=== PATIENT | female | born 1935 | race Hispanic/Latino ===

== ENCOUNTER 2019-10-01 13:44 | Emergency (ER) | payer OTHER ==
[~2019-10-01 13:44] MED LIST: ASPI-555 PO; ATOR40TA69 PO; BUSP10TA3 PO; ESCI5TAB10 PO; HYDR12.54 PO; ISOS60TA4 PO; MEMA21CA PO; NITR0.4T SL
[2019-10-01 14:47] LABS: BASOPHILS % (AUTO) 1.1 % (0.0-5.0); EOSINOPHILS % (AUTO) 5.8 % (0.0-8.0); HEMATOCRIT 39.3 % (36-48); LYMPHOCYTES % (AUTO) 24.8 % (21.0-51.0); MEAN CORPUSCULAR HEMOGLOBIN 29.4 pg (27.0-33.0); MEAN CORPUSCULAR HGB CONC 33.8 g/dL (32.0-36.0); MEAN CORPUSCULAR VOLUME 86.9 fL (79-99); NEUTROPHILS % (AUTO) 54.8 % (40.0-77.0); PLATELET COUNT (AUTO) 300 K/uL (130-400); RED BLOOD CELL COUNT(AUTO) 4.52 MIL/uL (4.00-5.50); WHITE BLOOD COUNT (AUTO) 6.4 K/uL (4.8-10.8)
[2019-10-01 14:57] LABS: INR 1.06 (0.85-1.15); PARTIAL THROMBOPLASTIN TIME 21.9 SEC (26.3-35.5); PROTHROMBIN TIME 11.4 SEC (9.6-11.6)
[2019-10-01 15:16] LABS: CARBON DIOXIDE 26 mmol/L (21-32); CHLORIDE 102 mmol/L (101-111); CREATININE 0.8 mg/dL (0.5-1.5); GLOMERULAR FILTR. RATE CALC 73 mL/min (>60); GLUCOSE,RANDOM 97 mg/dL (70-105); POTASSIUM 3.7 mmol/L (3.5-5.1); SODIUM SERUM 138 mmol/L (136-145); UREA NITROGEN, BLOOD 10 mg/dL (7-18)
[2019-10-01 15:19] LABS: ALANINE AMINOTRANSFERASE 23 U/L (12-78); ALBUMIN 3.2 g/dL (3.5-5.0); ASPARTATE AMINOTRANSFERASE 24 U/L (10-37); BILIRUBIN,TOTAL 0.6 mg/dL (0.2-1.0); CREATINE KINASE, TOTAL 75 U/L (21-232); TOTAL PROTEIN, SERUM 6.5 g/dL (6.0-8.3)
[2019-10-01 15:23] LABS: LIPASE < 50 U/L (114-286)
[2019-10-01] MEDS ORDERED: HYDROCORTISONE 25 MG SUPPOSITORY PR ONE (17:01)
== END 2019-10-01 18:22 | disposition home or self-care (01) ==
LOC: EDH 13:44
DX: K64.0 First degree hemorrhoids (principal); K64.4 Residual hemorrhoidal skin tags; K62.6 Ulcer of anus and rectum; R19.7 Diarrhea, unspecified; F41.9 Anxiety disorder, unspecified; I25.10 Atherosclerotic heart disease of native coronary artery without angina pectoris; F32.9 Major depressive disorder, single episode, unspecified
CPT/HCPCS: 36415; 71045; 80053; 82270; 82550; 83605; 83690; 84484; 85025; 85610; 85730; 87804

== ENCOUNTER → 2021-01-27 | Outpatient (CLI) | payer OTHER ==
[~2021-01-27] MED LIST changes: -ASPI-555 PO; +ASPI-556 PO; -ESCI5TAB10 PO; +ESCI5TAB16 PO; -ISOS60TA4 PO; +ISOS60TA77 PO
== END | disposition home or self-care (01) ==
LOC: RAH 13:31
PROVIDERS: ATTEND Family Medicine
DX: R22.32 Localized swelling, mass and lump, left upper limb (principal); W19.XXXA Unspecified fall, initial encounter; Y93.89 Activity, other specified; Y92.89 Other specified places as the place of occurrence of the external cause; Y99.8 Other external cause status
CPT/HCPCS: 73060

== ENCOUNTER 2021-03-30 07:39 | Day surgery (SDC) | payer OTHER ==
[2021-03-24 12:42] LABS: BASOPHILS % (AUTO) 1.1 % (0.0-5.0); EOSINOPHILS % (AUTO) 1.2 % (0.0-8.0); HEMATOCRIT 47.2 % (36-48); LYMPHOCYTES % (AUTO) 19.7 % (21.0-51.0); MEAN CORPUSCULAR HGB CONC 31.6 g/dL (32.0-36.0); MEAN CORPUSCULAR VOLUME 91.8 fL (79-99); MONOCYTES % (AUTO) 7.6 % (3.0-13.0); NEUTROPHILS % (AUTO) 69.9 % (40.0-77.0); PLATELET COUNT (AUTO) 292 K/uL (130-400); RED BLOOD CELL COUNT(AUTO) 5.14 MIL/uL (4.00-5.50); RED CELL DISTRIBUTION WIDTH 13.1 % (11.0-15.5); WHITE BLOOD COUNT (AUTO) 10.1 K/uL (4.8-10.8)
[2021-03-24 13:00] LABS: CREATININE 0.9 mg/dL (0.5-1.5)
[2021-03-29 15:36] VITALS: BP 170/90
[2021-03-30] VITALS (15 sets, daily range): BP systolic 153–177; BP diastolic 78–91
[~2021-03-30] VITALS: Ht 162.6 cm; Wt 70.9 kg
[~2021-03-30 07:39] MED LIST changes: -ESCI5TAB16 PO; -HYDR12.54 PO; -ISOS60TA77 PO; +LISI-809 PO; -MEMA21CA PO
[2021-03-30] MEDS ORDERED: LACTATED RINGERS 1000ML 1,000 ML IV ONE (08:19)
[2021-03-30] MEDS: CEFAZOLIN SODIUM 1 GM VIAL ONE ×2 (08:32→11:45)
[2021-03-30] MEDS ORDERED: LIDOCAINE PF 100MG/5ML (2%) SYRINGE 5ML ONE (11:06)
[2021-03-30] MEDS ORDERED: PROPOFOL 10 MG/ML 20ML VIAL IV ONE (11:06)
[2021-03-30] MEDS ORDERED: FENTANYL CITRATE PF 50 MCG/1 ML 2ML VIAL ONE (11:06)
[2021-03-30] MEDS ORDERED: GLYCOPYRROLATE 1 MG/5 ML SYRINGE ONE (11:54)
[2021-03-30] MEDS ORDERED: LABETALOL 20MG SYG IV ONE (13:14)
== END 2021-03-30 14:23 | disposition home or self-care (01) ==
LOC: DAH 07:39
PROVIDERS: ATTEND Orthopaedic Surgery
DX: S50.02XA Contusion of left elbow, initial encounter (principal); Z20.822 Contact with and (suspected) exposure to COVID-19; I10 Essential (primary) hypertension; E78.00 Pure hypercholesterolemia, unspecified; F41.9 Anxiety disorder, unspecified; F32.9 Major depressive disorder, single episode, unspecified; G89.18 Other acute postprocedural pain; Z95.1 Presence of aortocoronary bypass graft; Z98.890 Other specified postprocedural states; Z83.3 Family history of diabetes mellitus; Z68.27 Body mass index [BMI] 27.0-27.9, adult; Z79.82 Long term (current) use of aspirin; Z79.899 Other long term (current) drug therapy; X58.XXXA Exposure to other specified factors, initial encounter; Y93.89 Activity, other specified; Y92.89 Other specified places as the place of occurrence of the external cause
CPT/HCPCS: 24071; 36415; 80048; 85025; 87070; 87076; 87205; 87635; A4213; A4215; A4221; A4222; A4223 ×2; A4452; A4565; A4606; A4663; A6223; A6260; C9803; J0690; J2001; J2704; J3010; J3490; J7120

== ENCOUNTER 2021-09-06 04:44 | Inpatient (IN) | payer OTHER ==
[2021-09-06] VITALS (22 sets, daily range): BP systolic 131–187; BP diastolic 73–108
[~2021-09-06] VITALS: Ht 160 cm; Wt 68.0 kg
[~2021-09-06 04:44] MED LIST changes: -LISI-809 PO; +LISI5TAB21 PO
[2021-09-06 05:26] LABS: BASOPHILS % (AUTO) 0.5 % (0.0-5.0); EOSINOPHILS % (AUTO) 0.2 % (0.0-8.0); HEMATOCRIT 44.5 % (36-48); LYMPHOCYTES % (AUTO) 8.6 % (21.0-51.0); MEAN CORPUSCULAR HEMOGLOBIN 28.7 pg (27.0-33.0); MEAN CORPUSCULAR HGB CONC 33.3 g/dL (32.0-36.0); MEAN CORPUSCULAR VOLUME 86.4 fL (79-99); MONOCYTES % (AUTO) 6.2 % (3.0-13.0); NEUTROPHILS % (AUTO) 83.7 % (40.0-77.0); PLATELET COUNT (AUTO) 263 K/uL (130-400); RED BLOOD CELL COUNT(AUTO) 5.15 MIL/uL (4.00-5.50); RED CELL DISTRIBUTION WIDTH 12.4 % (11.0-15.5); WHITE BLOOD COUNT (AUTO) 17.4 K/uL (4.8-10.8)
[2021-09-06 05:33] LABS: APPEARANCE,URINE Clear (CLEAR); BILIRUBIN,URINE Negative (NEGATIVE); COLOR,URINE Yellow (YELLOW); GLUCOSE, URINE (UA) Negative (NEGATIVE); KETONES,URINE Negative (NEGATIVE); LEUKOCYTE ESTERASE ,URINE Negative (NEGATIVE); NITRATE,URINE Positive (NEGATIVE); OCCULT BLOOD,URINE Negative (NEGATIVE); PH,URINE 6.5 (5.0-8.0); PROTEIN,URINE Negative (NEGATIVE); UROBILINOGEN,URINE 0.2 mg/dL (0.2-1.0)
[2021-09-06 05:37] LABS: INR 1.04 (0.85-1.15); PROTHROMBIN TIME 11.3 SEC (9.6-11.6)
[2021-09-06 05:38] LABS: PARTIAL THROMBOPLASTIN TIME 28.3 SEC (26.3-35.5)
[2021-09-06 05:44] LABS: ALBUMIN 3.8 g/dL (3.5-5.0); BILIRUBIN,TOTAL 0.4 mg/dL (0.2-1.0); CREATININE 0.8 mg/dL (0.5-1.5); MAGNESIUM 1.8 mg/dL (1.80-2.40); POTASSIUM 3.5 mmol/L (3.5-5.1); TOTAL PROTEIN, SERUM 6.9 g/dL (6.0-8.3)
[2021-09-06 05:50] LABS: BACTERIA,URINE Moderate /HPF (None Seen); SQUAMOUS EPITHELIAL CELL,UR None Seen /HPF (0-2); WBC,URINE 0-1 /HPF (0-1)
[2021-09-06] MEDS ORDERED: ONDANSETRON 4MG INJ IV PRN (07:00)
[2021-09-06] MEDS ORDERED: NITROGLYCERIN 0.4 MG SL TAB SL PRN (07:00)
[2021-09-06] MEDS ORDERED: HYDROMORPHONE 1 MG INJ IV PRN (07:00)
[2021-09-06] MEDS ORDERED: ACETAMINOPHEN 325 MG TAB PO PRN (07:00)
[2021-09-06] MEDS ORDERED: 0.9%NACL 50ML 50 ML IV ONE (09:32)
[2021-09-06] MEDS: LACTATED RINGERS 1000ML 1,000 ML IV SCH ×2 (09:42→15:47)
[2021-09-06] MEDS: CEFTRIAXONE 1G VIAL IVP SCH (09:43)
[2021-09-06] MEDS: MORPHINE 2 MG SYG IV PRN (09:47)
[2021-09-06] MEDS ORDERED: FAMOTIDINE 20MG VIAL IV ONE (13:35)
[2021-09-06] MEDS ORDERED: PROPOFOL 10 MG/ML 20ML VIAL IV ONE (13:39)
[2021-09-06] MEDS ORDERED: ROCURONIUM 10MG/1ML SYR 10 MG/ML ML ONE (13:40)
[2021-09-06] MEDS ORDERED: FENTANYL CITRATE PF 50 MCG/1 ML 2ML VIAL ONE ×2 (13:40→14:29)
[2021-09-06] MEDS ORDERED: GLYCOPYRROLATE 1 MG/5 ML SYRINGE ONE ×2 (13:43→15:31)
[2021-09-06] MEDS ORDERED: ONDANSETRON 4MG INJ ONE (13:58)
[2021-09-06] MEDS ORDERED: ROPIVACAINE 0.5% 5MG/ML 30ML IJ ONE (14:41)
[2021-09-06] MEDS ORDERED: NEOSTIGMINE 5MG/5ML SYR IV ONE (15:31)
[2021-09-06] MEDS ORDERED: LABETALOL 20MG VIAL IV ONE (15:56)
[2021-09-06] MEDS ORDERED: ISOS30TA92 PO (21:00)
[2021-09-06] MEDS: ACETAMINOPHEN 325 MG TAB PO PRN (23:48)
[2021-09-07] VITALS: BP_SYST 136; BP_SYST 145; BP_DIAS 50; BP_DIAS 85
[2021-09-07] MEDS: MORPHINE 2 MG SYG IV PRN ×2 (01:43→07:30)
[2021-09-07 04:00] VITALS: BP 134/75
[2021-09-07 04:17] LABS: BASOPHILS % (AUTO) 0.7 % (0.0-5.0); EOSINOPHILS % (AUTO) 0.9 % (0.0-8.0); HEMATOCRIT 36.3 % (36-48); LYMPHOCYTES % (AUTO) 13.8 % (21.0-51.0); MEAN CORPUSCULAR VOLUME 87.5 fL (79-99); MONOCYTES % (AUTO) 6.9 % (3.0-13.0); NEUTROPHILS % (AUTO) 76.8 % (40.0-77.0); PLATELET COUNT (AUTO) 187 K/uL (130-400); RED BLOOD CELL COUNT(AUTO) 4.15 MIL/uL (4.00-5.50); RED CELL DISTRIBUTION WIDTH 12.7 % (11.0-15.5); WHITE BLOOD COUNT (AUTO) 11.7 K/uL (4.8-10.8)
[2021-09-07 04:38] LABS: ALBUMIN 2.8 g/dL (3.5-5.0); BILIRUBIN,TOTAL 1.1 mg/dL (0.2-1.0); CREATININE 0.9 mg/dL (0.5-1.5); POTASSIUM 4.2 mmol/L (3.5-5.1); TOTAL PROTEIN, SERUM 5.7 g/dL (6.0-8.3)
[2021-09-07] MEDS: CEFTRIAXONE 1G VIAL IVP SCH (07:30)
[2021-09-07 07:50] VITALS: BP 143/52
[2021-09-07] MEDS: LISINOPRIL 5 MG TABLET PO SCH (10:53)
[2021-09-07 11:18] VITALS: BP 113/46
[2021-09-07] MEDS: TRAMADOL HCL 50 MG TABLET PO PRN ×2 (11:56→19:38)
[2021-09-07 16:09] VITALS: BP 129/73
[2021-09-07] MEDS: ENOXAPARIN SODIUM 40 MG/0.4 ML SYRINGE SQ SCH (18:01)
[2021-09-07 20:00] VITALS: BP 138/70
[2021-09-07] MEDS: KETOROLAC 15MG/ML VIAL (15MG/ML) IV PRN (22:48)
[2021-09-08] VITALS: BP 129/67
[2021-09-08] MEDS: ACETAMINOPHEN 325 MG TAB PO PRN (01:30)
[2021-09-08 04:00] VITALS: BP 139/81
[2021-09-08 05:21] LABS: BASOPHILS % (AUTO) 0.9 % (0.0-5.0); EOSINOPHILS % (AUTO) 4.5 % (0.0-8.0); HEMATOCRIT 31.6 % (36-48); LYMPHOCYTES % (AUTO) 16.7 % (21.0-51.0); MEAN CORPUSCULAR HGB CONC 32.9 g/dL (32.0-36.0); MONOCYTES % (AUTO) 7.5 % (3.0-13.0); NEUTROPHILS % (AUTO) 69.8 % (40.0-77.0); PLATELET COUNT (AUTO) 151 K/uL (130-400); RED BLOOD CELL COUNT(AUTO) 3.59 MIL/uL (4.00-5.50); RED CELL DISTRIBUTION WIDTH 12.8 % (11.0-15.5); WHITE BLOOD COUNT (AUTO) 9.9 K/uL (4.8-10.8)
[2021-09-08 05:31] LABS: ALBUMIN 2.5 g/dL (3.5-5.0); BILIRUBIN,TOTAL 0.9 mg/dL (0.2-1.0); CREATININE 0.8 mg/dL (0.5-1.5); POTASSIUM 3.7 mmol/L (3.5-5.1); TOTAL PROTEIN, SERUM 5.4 g/dL (6.0-8.3)
[2021-09-08] MEDS: CEFTRIAXONE 1G VIAL IVP SCH (06:27)
[2021-09-08 08:00] VITALS: BP 124/57
[2021-09-08] MEDS ORDERED: LACTULOSE 20 GM/30 ML UDCUP PO PRN (08:30)
[2021-09-08] MEDS ORDERED: POLYETHYLENE GLYCOL 3350 17 GM POWD.PACK ONE (08:41)
[2021-09-08] MEDS: TRAMADOL HCL 50 MG TABLET PO PRN ×2 (08:48→23:26)
[2021-09-08] MEDS: LISINOPRIL 5 MG TABLET PO SCH (08:48)
[2021-09-08] MEDS: ENOXAPARIN SODIUM 40 MG/0.4 ML SYRINGE SQ SCH (08:49)
[2021-09-08] MEDS ORDERED: POLYETHYLENE GLYCOL 3350 17 GM POWD.PACK PO SCH (09:00)
[2021-09-08 12:00] VITALS: BP 120/68
[2021-09-08 16:00] VITALS: BP 136/66
[2021-09-08] MEDS: KETOROLAC 15MG/ML VIAL (15MG/ML) IV PRN (17:54)
[2021-09-08 21:30] VITALS: BP 115/56
[2021-09-09] MEDS: KETOROLAC 15MG/ML VIAL (15MG/ML) IV PRN ×2 (00:44→11:41)
[2021-09-09 02:30] VITALS: BP 159/79
[2021-09-09 04:52] VITALS: BP 145/69
[2021-09-09] MEDS: CEFTRIAXONE 1G VIAL IVP SCH (06:00)
[2021-09-09 08:00] VITALS: BP 137/66
[2021-09-09] MEDS ORDERED: BUSPIRONE HCL 5 MG TABLET PO PRN (08:00)
[2021-09-09] MEDS: TRAMADOL HCL 50 MG TABLET PO PRN (08:30)
[2021-09-09] MEDS: ENOXAPARIN SODIUM 40 MG/0.4 ML SYRINGE SQ SCH (08:42)
[2021-09-09] MEDS: LISINOPRIL 5 MG TABLET PO SCH (08:47)
[2021-09-09] MEDS ORDERED: ISOSORBIDE MONO 30MG SR TAB PO SCH (09:00)
[2021-09-09] MEDS ORDERED: ATORVASTATIN 40 MG TABLET PO SCH (09:00)
[2021-09-09] MEDS ORDERED: POLYETHYLENE GLYCOL 3350 17 GM POWD.PACK PO SCH (09:00)
[2021-09-09 12:00] VITALS: BP 133/65
[2021-09-09 16:00] VITALS: BP 120/45
== END 2021-09-09 18:15 | DRG 481 ==
LOC: EDH 04:44 → OBSVTOIN 06:47 → EDHIP 06:47 → 4CH 16:31 → 4AH 09-09 06:18
PROVIDERS: ADMIT Internal Medicine; ATTEND Internal Medicine
PROC: 0QS706Z Reposition Left Upper Femur with Intramedullary Internal Fixation Device, Open Approach (ICD-10-PCS; principal; 2021-09-06 14:23)
DX: S72.142A Displaced intertrochanteric fracture of left femur, initial encounter for closed fracture (principal); N39.0 Urinary tract infection, site not specified; I10 Essential (primary) hypertension; I20.9 Angina pectoris, unspecified; E78.5 Hyperlipidemia, unspecified; F32.A Depression, unspecified; E78.00 Pure hypercholesterolemia, unspecified; G30.9 Alzheimer's disease, unspecified; F02.80 Dementia in other diseases classified elsewhere, unspecified severity, without behavioral disturbance, psychotic disturbance, mood disturbance, and anxiety; B96.20 Unspecified Escherichia coli [E. coli] as the cause of diseases classified elsewhere; F41.9 Anxiety disorder, unspecified; Z20.822 Contact with and (suspected) exposure to COVID-19; Z79.899 Other long term (current) drug therapy; Z95.1 Presence of aortocoronary bypass graft; Z88.8 Allergy status to other drugs, medicaments and biological substances; W06.XXXA Fall from bed, initial encounter; Y93.89 Activity, other specified; Y92.092 Bedroom in other non-institutional residence as the place of occurrence of the external cause; Y99.8 Other external cause status; H91.90 Unspecified hearing loss, unspecified ear
CPT/HCPCS: 36415; 71045; 73502; 73503; 80053; 81001; 82550; 83735; 84484; 85025; 85610; 85730; 86850; 86900; 86901; 87077; 87088; 87186; 87635; 93005; 97039; C1769; C1776; G0378; J0696; J1650; J1885; J2405; J2704; J2710; J2795; J3010; J3490; J7120

== ENCOUNTER → 2023-03-06 | Outpatient (CLI) | payer OTHER ==
[~2023-03-06] MED LIST changes: +ISOS30TA92 PO
== END | disposition home or self-care (01) ==
LOC: SHCH 10:05
PROVIDERS: ATTEND Internal Medicine Cardiovascular Disease
DX: R00.1 Bradycardia, unspecified (principal)
CPT/HCPCS: 93306; J7030

== ENCOUNTER 2025-05-31 18:55 | Emergency (ER) | payer OTHER ==
[~2025-05-31] VITALS: Ht 162.6 cm; Wt 65.8 kg
[2025-05-31 18:57] VITALS: BP 167/58; PULSE 50; RESP 20; TEMP 98.4
--- NOTE | 2025-05-31 19:58 | ERN ---
General Chief Complaint: Low Back Pain/Injury Stated Complaint: BACK PAIN Time Seen by MD: 19:08 History of Present Illness Initial Comments 89-year-old female history of Parkinson's dementia, hypertension, hyperlipidemia, anxiety/depression here for evaluation of the fall. As per daughter who was at bedside, patient was doing her activities of daily living at home when she had a mechanical fall and fell on her side. Daughter immediately went to the patient. No head trauma. No LOC. No altered mental status. Patient was ambulatory afterwards and has been doing her regular activities of daily living however she has been complaining of lower back pain thus the daughter decided to bring the patient to the emergency room for evaluation. She was given two pills of Tylenol prior to arrival as well as heat patches. Denies any red flag symptoms including bowel or bladder incontinence. Allergies: Coded Allergies: No Known Allergies (Verified Allergy, Unknown, 09/18/14) Uncoded Allergies: CLEANING PRODUCTS (Allergy, Unknown, 09/18/14) Home Meds Reported Medications Isosorbide Mononitrate (Isosorbide Mononitrate ER) 30 Mg Tab.er.24h, 30 MG PO DAILY, TAB 09/06/21 Lisinopril (Lisinopril) 5 Mg Tablet, 5 MG PO DAILY, TAB 03/29/21 Aspirin (Aspir 81) 81 Mg Tablet.dr, 81 MG PO AM, TAB 01/23/17 Nitroglycerin (Nitrostat) 0.4 Mg Tab.subl, 0.4 MG SL AD PRN for CHEST PAIN, TAB.SL 09/18/14 Buspirone HCl (Buspirone HCl) 10 Mg Tablet, 10 MG PO DAILY PRN for ANXIETY, TAB 09/18/14 Atorvastatin Calcium (LIPITOR) 40 Mg Tablet, 40 MG PO DAILY, TAB 09/18/14 Past Medical History Past Medical History: High Cholesterol, Heart Disease, Hypertension Past Surgical History: CABG Musculoskeletal: (+) back pain Review of Systems: was completed, & the rest were negative. Physical Exam General Appearance: (+) no apparent distress Orientation: (+) alert, (+) oriented x 3 Orientation Comment Redirectable by daughter. Severe dementia Eye: bilateral eye normal inspection, bilateral eye PERRL, bilateral eye EOMI Ear, Nose, Throat: (+) hearing grossly normal, (+) normal ENT inspection, (+) moist mucous membraine Neck: (+) normal inspection Respiratory: (+) chest non-tender, (+) lungs clear, (+) well ventilated Heart: (+) regular; (-) murmur Extremities: (+) normal range of motion, (+) non-tender MDM 89-year-old female with lower back pain. We will give her some pain medications in the x-ray prior to discharge home. ED Course Orders Procedure Category Date Status Time Lumbar Spine 2-3vws RAD 05/31/25 Resulted 19:02 Methocarbamol PHA 05/31/25 Complete (Methocarbamol) 20:00 Ketorolac PHA 05/31/25 Complete Tromethamine 15mg/Ml 19:30 Current Medications Medications (Trade) Dose Ordered Sig/Christine Route PRN Reason Start Time Stop Time Status Last Admin Dose Admin Ketorolac Tromethamine (toRADol) 15 mg ONCE ONCE IM 05/31/25 19:30 05/31/25 19:31 DC 05/31/25 19:48 Methocarbamol (methoCARBamol) 500 mg ONCE ONCE PO 05/31/25 20:00 05/31/25 20:01 DC 05/31/25 19:48 Vital Signs Date Time Temp Pulse Resp B/P (MAP) Pulse Ox O2 Delivery O2 Flow Rate FiO2 05/31/25 18:57 98.4 50 20 167/58 99 Room Air DX & DISP Disposition: Discharge Departure Impression: Primary Impression: Fall Additional Impression: Back pain Condition: Stable Scripts Lidocaine (Lidocaine Pain Relief) 4 % Adh..patch 1 PATCH TP DAILY for 10 Days, #10 PATCH 0 Refills Prov: JOSE KEYS MD 05/31/25 Naproxen (Naproxen) 250 Mg Tablet 1 TAB PO BID for pain for 5 Days, #10 TAB 0 Refills Prov: JOSE KEYS MD 05/31/25 Referrals: BEKA VILLAVICENCIO DO (PCP) JOSE KEYS MD May 31, 2025 19:58
--- NOTE | 2025-05-31 20:47 | HMCIMG ---
EXAM: CR Lumbar Spine, 3 views. CLINICAL HISTORY: Fall COMPARISON: None provided. FINDINGS: Mild osteopenia. Age-indeterminate anterior wedge compression fracture of the L1 vertebra. The rest of the lumbar vertebrae are normal in height. Moderate to severe facet arthropathy at L3-L4, L4-L5, and L5-S1 levels. Severe narrowing of the bilateral neural foramina at the L5-S1 level. Mild anterolisthesis of L4 over L5. Mild degenerative reduction in disc space at the L4-L5 level. The rest of the lumbar intervertebral disc spaces are preserved. Soft tissues are within normal limits. Extensive atherosclerotic vascular disease of the infrarenal and common iliac arteries. IMPRESSION: Mild osteopenia. Age-indeterminate anterior wedge compression fracture of the L1 vertebra. The rest of the lumbar vertebrae are normal in height. Moderate to severe facet arthropathy at L3-L4, L4-L5, and L5-S1 levels. Severe narrowing of the bilateral neural foramina at the L5-S1 level. Mild anterolisthesis of L4 over L5. Mild degenerative reduction in disc space at the L4-L5 level. /[place]
== END 2025-05-31 21:13 | disposition home or self-care (01) ==
LOC: EDH 18:55
DX: M54.50 Low back pain, unspecified (principal); E78.00 Pure hypercholesterolemia, unspecified; F02.84 Dementia in other diseases classified elsewhere, unspecified severity, with anxiety; I11.9 Hypertensive heart disease without heart failure; Z79.899 Other long term (current) drug therapy; Z95.1 Presence of aortocoronary bypass graft; W18.39XA Other fall on same level, initial encounter; Y93.89 Activity, other specified; Y92.89 Other specified places as the place of occurrence of the external cause; Y99.8 Other external cause status
CPT/HCPCS: 99283; 72100; 96372; J1885